=== PATIENT | male | born 1960 | race Caucasian/White ===

== ENCOUNTER → 2017-06-15 | Outpatient (CLI) | payer BC | LOC: FIMAGING 13:38 | PROVIDERS: ATTEND Psychiatry & Neurology Neurology | DX: M46.92 Unspecified inflammatory spondylopathy, cervical region (principal); M50.31 Other cervical disc degeneration, high cervical region; M48.02 Spinal stenosis, cervical region ==

== ENCOUNTER → 2018-04-18 | Outpatient (CLI) | payer BC | LOC: FIMAGING 11:02 | PROVIDERS: ATTEND Family Medicine Sports Medicine | DX: M19.011 Primary osteoarthritis, right shoulder (principal) ==

== ENCOUNTER → 2018-07-07 | Outpatient (CLI) | payer BC | LOC: BMCIMAGING 12:02 | PROVIDERS: ATTEND Family Medicine | DX: M25.532 Pain in left wrist (principal) ==

== ENCOUNTER → 2018-10-03 | Outpatient (CLI) | payer BC | LOC: BMCIMAGING 10:47 | PROVIDERS: ATTEND Physician Assistant | DX: M25.511 Pain in right shoulder (principal); M75.81 Other shoulder lesions, right shoulder; M25.711 Osteophyte, right shoulder ==